=== PATIENT | male | born 1930 | race Caucasian/White ===

== ENCOUNTER → 2016-08-24 | Outpatient (CLI) | payer MEDICARE, BC ==
[~2016-08-24] MED LIST: AMLO2.5T PO; BRIM5DRO10 OD; BRINOS OP; BRINOS OS; BUDE10.2 IH; CLOP75 PO; COMBISP IH; DOCU-174 PO; DOCU100C19 PO; DUTA.5 PO; FURO10SO PO; FURO40 PO; GUAIF600 PO; LATA2.5D2 OU; MOM30 PO; MONT10TA21 PO; NIZO215C TP; OMEP20 PO; SIME80TA PO; TAMS0.4C32 PO; TIOT185 IH; TRI115C TP; VITAD1000 PO; [UNRECOGNIZED DRUG - CODE] PO
== END | disposition home or self-care (01) ==
LOC: RADMN 08:31
PROVIDERS: ATTEND Internal Medicine Critical Care Medicine
DX: J18.1 Lobar pneumonia, unspecified organism (principal); I70.0 Atherosclerosis of aorta; I25.10 Atherosclerotic heart disease of native coronary artery without angina pectoris; I51.7 Cardiomegaly; I77.819 Aortic ectasia, unspecified site; D71 Functional disorders of polymorphonuclear neutrophils; Z95.2 Presence of prosthetic heart valve
CPT/HCPCS: 71250

== ENCOUNTER → 2016-09-06 | Outpatient (CLI) | payer MEDICARE, BC ==
[~2016-09-06] VITALS: Ht 182.9 cm; Wt 77.9 kg
[2016-09-06 11:12] VITALS: BP 147/83
== END | disposition home or self-care (01) ==
LOC: SRCNTR 11:04
PROVIDERS: ATTEND Internal Medicine Critical Care Medicine
DX: J44.9 Chronic obstructive pulmonary disease, unspecified (principal); I25.10 Atherosclerotic heart disease of native coronary artery without angina pectoris; C34.90 Malignant neoplasm of unspecified part of unspecified bronchus or lung; N40.1 Benign prostatic hyperplasia with lower urinary tract symptoms; Z90.2 Acquired absence of lung [part of]
CPT/HCPCS: G0463

== ENCOUNTER → 2016-12-06 | Outpatient (CLI) | payer MEDICARE, BC ==
[~2016-12-06] VITALS: Ht 182.9 cm; Wt 76.5 kg
[~2016-12-06] MED LIST changes: -BRINOS OP; -DOCU100C19 PO; -FURO10SO PO
[2016-12-06 11:06] VITALS: BP 144/89
== END | disposition home or self-care (01) ==
LOC: SRCNTR 10:53
PROVIDERS: ATTEND Internal Medicine Critical Care Medicine
DX: I25.10 Atherosclerotic heart disease of native coronary artery without angina pectoris (principal); J44.1 Chronic obstructive pulmonary disease with (acute) exacerbation; C34.90 Malignant neoplasm of unspecified part of unspecified bronchus or lung; N40.1 Benign prostatic hyperplasia with lower urinary tract symptoms; Z90.2 Acquired absence of lung [part of]; Z95.2 Presence of prosthetic heart valve; Z95.1 Presence of aortocoronary bypass graft; Z95.5 Presence of coronary angioplasty implant and graft
CPT/HCPCS: G0463

== ENCOUNTER → 2017-03-07 | Outpatient (CLI) | payer MEDICARE, BC ==
[~2017-03-07] VITALS: Ht 182.9 cm; Wt 78.5 kg
[2017-03-07 11:29] VITALS: BP 148/69
== END | disposition home or self-care (01) ==
LOC: SRCNTR 11:02
PROVIDERS: ATTEND Internal Medicine Critical Care Medicine
DX: I25.10 Atherosclerotic heart disease of native coronary artery without angina pectoris (principal); J44.1 Chronic obstructive pulmonary disease with (acute) exacerbation; C34.90 Malignant neoplasm of unspecified part of unspecified bronchus or lung; N40.1 Benign prostatic hyperplasia with lower urinary tract symptoms; R33.8 Other retention of urine; E27.8 Other specified disorders of adrenal gland; Z90.2 Acquired absence of lung [part of]; Z95.1 Presence of aortocoronary bypass graft; Z95.5 Presence of coronary angioplasty implant and graft; Z95.3 Presence of xenogenic heart valve
CPT/HCPCS: G0463

== ENCOUNTER → 2017-07-17 | Outpatient (CLI) | payer MEDICARE, BC ==
[~2017-07-17] VITALS: Ht 182.9 cm; Wt 81.0 kg
[~2017-07-17] MED LIST changes: -DOCU-174 PO; +DOCU100C33 PO; +LEVO25TA4 PO
[2017-07-17 12:42] VITALS: BP 155/75
== END | disposition home or self-care (01) ==
LOC: SRCNTR 12:35
PROVIDERS: ATTEND Internal Medicine Critical Care Medicine
DX: J44.1 Chronic obstructive pulmonary disease with (acute) exacerbation (principal); C34.90 Malignant neoplasm of unspecified part of unspecified bronchus or lung; N40.1 Benign prostatic hyperplasia with lower urinary tract symptoms; I25.10 Atherosclerotic heart disease of native coronary artery without angina pectoris; Z90.2 Acquired absence of lung [part of]
CPT/HCPCS: G0463

== ENCOUNTER → 2017-10-02 | Outpatient (CLI) | payer MEDICARE, BC | END | disposition home or self-care (01) | LOC: RADPV 09:49 | PROVIDERS: ATTEND Internal Medicine | DX: J44.9 Chronic obstructive pulmonary disease, unspecified (principal); Z85.118 Personal history of other malignant neoplasm of bronchus and lung | CPT/HCPCS: 71046 ==

== ENCOUNTER → 2017-10-22 | Outpatient (CLI) | payer MEDICARE, BC | END | disposition home or self-care (01) | LOC: RADPV 07:37 | PROVIDERS: ATTEND Internal Medicine Critical Care Medicine | DX: J98.11 Atelectasis (principal); J44.9 Chronic obstructive pulmonary disease, unspecified | CPT/HCPCS: 71046 ==

== ENCOUNTER → 2018-01-24 | Outpatient (CLI) | payer MEDICARE, BC ==
[~2018-01-24] VITALS: Ht 182.9 cm; Wt 78.5 kg
[~2018-01-24] MED LIST changes: +FLUT1BLS IH; +UMEC62.5 IH
[2018-01-24 11:50] VITALS: BP 129/63
== END | disposition home or self-care (01) ==
LOC: SRCNTR 11:30
PROVIDERS: ATTEND Internal Medicine Critical Care Medicine
DX: J43.9 Emphysema, unspecified (principal); C34.90 Malignant neoplasm of unspecified part of unspecified bronchus or lung; N40.1 Benign prostatic hyperplasia with lower urinary tract symptoms; I25.10 Atherosclerotic heart disease of native coronary artery without angina pectoris; Z90.2 Acquired absence of lung [part of]
CPT/HCPCS: G0463

== ENCOUNTER → 2018-03-14 | Outpatient (CLI) | payer MEDICARE, BC ==
[~2018-03-14] MED LIST changes: -AMLO2.5T PO; +AMLO2.5T3 PO; -BUDE10.2 IH; -NIZO215C TP; -SIME80TA PO; -TIOT185 IH; -TRI115C TP
== END | disposition home or self-care (01) ==
LOC: RADMN 12:43
PROVIDERS: ATTEND Internal Medicine Critical Care Medicine
DX: I25.10 Atherosclerotic heart disease of native coronary artery without angina pectoris (principal); R91.8 Other nonspecific abnormal finding of lung field; I70.0 Atherosclerosis of aorta; E78.00 Pure hypercholesterolemia, unspecified; J44.9 Chronic obstructive pulmonary disease, unspecified; M19.90 Unspecified osteoarthritis, unspecified site; Z95.2 Presence of prosthetic heart valve; Z90.49 Acquired absence of other specified parts of digestive tract; Z90.2 Acquired absence of lung [part of]
CPT/HCPCS: 71250

== ENCOUNTER → 2018-05-03 | Outpatient (CLI) | payer MEDICARE, BC ==
[~2018-05-03] VITALS: Ht 182.9 cm; Wt 81.0 kg
[2018-05-03 13:33] VITALS: BP 139/66
== END | disposition home or self-care (01) ==
LOC: SRCNTR 13:13
PROVIDERS: ATTEND Internal Medicine Critical Care Medicine
DX: J44.1 Chronic obstructive pulmonary disease with (acute) exacerbation (principal); N40.1 Benign prostatic hyperplasia with lower urinary tract symptoms; I25.10 Atherosclerotic heart disease of native coronary artery without angina pectoris; Z85.118 Personal history of other malignant neoplasm of bronchus and lung; Z90.2 Acquired absence of lung [part of]; Z95.1 Presence of aortocoronary bypass graft
CPT/HCPCS: G0463

== ENCOUNTER → 2018-06-05 | Outpatient (CLI) | payer MEDICARE, BC | END | disposition home or self-care (01) | LOC: RADMN 09:10 | PROVIDERS: ATTEND Internal Medicine Critical Care Medicine | DX: J98.11 Atelectasis (principal); J44.1 Chronic obstructive pulmonary disease with (acute) exacerbation; R91.8 Other nonspecific abnormal finding of lung field; E27.8 Other specified disorders of adrenal gland; Z90.49 Acquired absence of other specified parts of digestive tract; Z95.2 Presence of prosthetic heart valve | CPT/HCPCS: 71250 ==

== ENCOUNTER → 2018-07-30 | Outpatient (CLI) | payer MEDICARE, BC ==
[~2018-07-30] VITALS: Ht 182.9 cm; Wt 80.0 kg
[~2018-07-30] MED LIST changes: -AMLO2.5T3 PO; +AMLO2.5T4 PO; -CLOP75 PO; +CLOP75TA17 PO
[2018-07-30 15:57] VITALS: BP 154/81
== END | disposition home or self-care (01) ==
LOC: SRCNTR 14:43
PROVIDERS: ATTEND Internal Medicine Critical Care Medicine
DX: J44.9 Chronic obstructive pulmonary disease, unspecified (principal); C34.90 Malignant neoplasm of unspecified part of unspecified bronchus or lung; I25.10 Atherosclerotic heart disease of native coronary artery without angina pectoris; N40.1 Benign prostatic hyperplasia with lower urinary tract symptoms
CPT/HCPCS: G0463

== ENCOUNTER 2018-11-11 18:40 | Inpatient (IN) | payer MEDICARE, BC ==
[~2018-11-11] VITALS: Ht 182.9 cm; Wt 80.0 kg
[~2018-11-11 18:40] MED LIST changes: -CLOP75TA17 PO; +CLOP75TA3 PO
[2018-11-11] MEDS ORDERED: IPRA4AER IH (19:02)
[2018-11-11] MEDS ORDERED: FLUT1BLS IH (19:02)
[2018-11-11] MEDS ORDERED: KDUR10 PO (19:02)
[2018-11-11] MEDS ORDERED: UMEC62.5 IH (19:02)
[2018-11-11] MEDS ORDERED: BRINOS OP (19:02)
[2018-11-11] MEDS ORDERED: ALBUTEROL SULFATE 2.5 MG/0.5 ML NEB SOLUTION NEB ONE (19:45)
[2018-11-11] MEDS ORDERED: IPRATROPIUM BROMIDE 0.5 MG/2.5 ML NEB SOLUTION NEB ONE (19:45)
[2018-11-11] MEDS ORDERED: CefTRIAXone 1 GM/DEXTROSE 50 ML IV ONE (19:45)
[2018-11-11] MEDS ORDERED: MethylPREDNISolone SOD SUCC 125 MG/2 ML VIAL IVP ONE (19:45)
[2018-11-11] MEDS ORDERED: OXYGEN THERAPY IH SCH ×2 (20:00→21:00)
[2018-11-11 20:28] LABS: BASOPHILS % (AUTO) 0.1 % (0.0-2.0); EOSINOPHILS % (AUTO) 0 % (1.0-6.0); HEMATOCRIT 41.5 % (41-53); HEMOGLOBIN 13.7 g/dL (13.5-17.5); LYMPHOCYTES # (AUTO) 0.3 K/uL (1.0-4.8); LYMPHOCYTES % (AUTO) 1.5 % (22.0-44.0); MEAN CORPUSCULAR HGB CONC 32.9 G/dL (31.0-37.0); MEAN CORPUSCULAR VOLUME 91 fL (80-100); MONOCYTES # (AUTO) 0.9 K/uL (0.1-1.0); MONOCYTES % (AUTO) 4.9 % (2.0-9.0); NEUTROPHILS # (AUTO) 17.1 K/uL (1.8-7.7); PLATELET COUNT (AUTO) 291 K/uL (150-450); RED BLOOD CELL COUNT(AUTO) 4.56 MIL/uL (4.50-5.90); RED CELL DISTRIBUTION WIDTH 13.8 % (11.5-14.5)
[2018-11-11] MEDS ORDERED: ACETAMINOPHEN 500 MG TABLET PO ONE (20:30)
[2018-11-11] MEDS ORDERED: SODIUM CHLORIDE 0.9% 1,500 ML IV ONE (20:30)
[2018-11-11 20:32] LABS: NEUTROPHILS % (AUTO) 93.5 % (40.0-70.0)
[2018-11-11 20:36] LABS: ANION GAP 6 mmol/L (8-16); CALCIUM, TOTAL 9.1 mg/dL (8.8-10.5); CARBON DIOXIDE 29 mmol/L (22-29); CHLORIDE 96 mmol/L (98-107); GLUCOSE,RANDOM 249 mg/dL (70-110); POTASSIUM 3.8 mmol/L (3.5-5.1); SODIUM SERUM 131 mmol/L (136-145); UREA NITROGEN, BLOOD 14 mg/dL (7-18)
[2018-11-11 20:43] LABS: ALANINE AMINOTRANSFERASE 16 U/L (12-78); ALBUMIN 3.5 g/dL (3.4-5.0); ALKALINE PHOSPHATASE 95 U/L (46-116); ASPARTATE AMINOTRANSFERASE 18 U/L (15-37); GLOMERULAR FILTR. RATE CALC > 60 mL/min (>60); TOTAL PROTEIN, SERUM 7.5 g/dL (6.4-8.2)
[2018-11-11 20:45] LABS: LACTIC ACID 1.6 mmol/L (0.4-2.0)
[2018-11-11 20:50] LABS: B-TYPE NATRIURETIC PEPTIDE 125 pg/mL (0-100)
[2018-11-11 20:59] LABS: INFLUENZA TYPE A NEGATIVE FOR TYPE A (NEGATIVE); INFLUENZA TYPE B NEGATIVE FOR TYPE B (NEGATIVE)
[2018-11-11] MEDS ORDERED: 0.9% SODIUM CHLORIDE 10 ML SYRINGE IVP PRN (21:00)
[2018-11-11] MEDS ORDERED: CLOPIDOGREL BISULFATE 75 MG TABLET PO ONE (21:00)
[2018-11-11] MEDS ORDERED: ACETAMINOPHEN 325 MG TABLET PO PRN ×2 (21:00→21:15)
[2018-11-11] MEDS ORDERED: GuaiFENesin/D-METHORPHAN/PHENYLEPH 5 ML LIQUID ORAL.SYG PO PRN (21:15)
[2018-11-11] MEDS ORDERED: BISACODYL 10 MG RECTAL RECTAL SUPPOSITORY PR PRN (21:15)
[2018-11-11] MEDS ORDERED: ALBUTEROL SULFATE 2.5 MG/0.5 ML NEB SOLUTION NEB PRN (21:15)
[2018-11-11] MEDS ORDERED: OxyCODONE HCL/ACETAMINOPHEN 5-325 MG TABLET PO PRN (21:15)
[2018-11-11] MEDS ORDERED: BENZOCAINE/MENTHOL LOZENGE MM PRN (21:15)
[2018-11-11] MEDS ORDERED: MORPHINE SULFATE 2 MG/ML SYRINGE IVP PRN (21:15)
[2018-11-11] MEDS ORDERED: IPRATROPIUM BROMIDE 0.5 MG/2.5 ML NEB SOLUTION NEB PRN (21:15)
[2018-11-11] MEDS ORDERED: MAGNESIUM HYDROXIDE SUSPENSION 30 ML UDCUP PO PRN (21:15)
[2018-11-11] MEDS ORDERED: ZOLPIDEM TARTRATE 5 MG TABLET PO PRN (21:15)
[2018-11-11] MEDS ORDERED: IPRATROPIUM BROMIDE 0.5 MG/2.5 ML NEB SOLUTION NEB SCH (23:00)
[2018-11-11] MEDS ORDERED: ALBUTEROL SULFATE 2.5 MG/0.5 ML NEB SOLUTION NEB SCH (23:00)
[2018-11-11 23:03] VITALS: BP 118/65
[2018-11-12] MEDS ORDERED: HEPARIN SODIUM 25000 UNITS/D5W 250 ML IV PRN (04:01)
[2018-11-12] MEDS ORDERED: HEPARIN SODIUM,PORCINE 5,000 UNITS/ML VIAL IVP PRN ×2 (04:15)
[2018-11-12] MEDS ORDERED: HEPARIN SODIUM,PORCINE 5,000 UNITS/ML VIAL IVP ONE (04:15)
[2018-11-12 04:37] LABS: BASOPHILS % (AUTO) 0.1 % (0.0-2.0); EOSINOPHILS % (AUTO) 0 % (1.0-6.0); HEMATOCRIT 39.9 % (41-53); LYMPHOCYTES # (AUTO) 0.5 K/uL (1.0-4.8); MEAN CORPUSCULAR HGB CONC 32.5 G/dL (31.0-37.0); MEAN CORPUSCULAR VOLUME 92 fL (80-100); MONOCYTES # (AUTO) 0.5 K/uL (0.1-1.0); MONOCYTES % (AUTO) 2.2 % (2.0-9.0); NEUTROPHILS # (AUTO) 22.2 K/uL (1.8-7.7); PLATELET COUNT (AUTO) 285 K/uL (150-450); RED BLOOD CELL COUNT(AUTO) 4.32 MIL/uL (4.50-5.90)
[2018-11-12 04:41] VITALS: BP 129/72
[2018-11-12 04:41] LABS: NEUTROPHILS % (AUTO) 95.7 % (40.0-70.0)
[2018-11-12 04:44] LABS: INR 1.1 (0.9-1.1)
[2018-11-12 04:49] LABS: ALANINE AMINOTRANSFERASE 13 U/L (12-78); ALBUMIN 2.9 g/dL (3.4-5.0); ALKALINE PHOSPHATASE 80 U/L (46-116); ANION GAP 8 mmol/L (8-16); ASPARTATE AMINOTRANSFERASE 22 U/L (15-37); BILIRUBIN,TOTAL 0.7 mg/dL (0.1-1.0); CALCIUM, TOTAL 8.3 mg/dL (8.8-10.5); CARBON DIOXIDE 30 mmol/L (22-29); CHLORIDE 100 mmol/L (98-107); CREATININE 0.93 mg/dL (0.60-1.30); GLOMERULAR FILTR. RATE CALC > 60 mL/min (>60); GLUCOSE,RANDOM 206 mg/dL (70-110); POTASSIUM 4.7 mmol/L (3.5-5.1); SODIUM SERUM 138 mmol/L (136-145); TOTAL PROTEIN, SERUM 6.5 g/dL (6.4-8.2); UREA NITROGEN, BLOOD 13 mg/dL (7-18)
[2018-11-12 04:50] LABS: HEMOGLOBIN A1C 6.5 % (4.5-6.2)
[2018-11-12] MEDS: LEVOTHYROXINE SODIUM 25 MCG TABLET PO SCH (06:12)
[2018-11-12 07:29] VITALS: BP 125/68
[2018-11-12] MEDS ORDERED: ASPIRIN 81 MG EC TABLET PO SCH (08:00)
[2018-11-12] MEDS: ALBUTEROL SULFATE 2.5 MG/0.5 ML NEB SOLUTION NEB SCH ×4 (08:28→20:04)
[2018-11-12] MEDS: IPRATROPIUM BROMIDE 0.5 MG/2.5 ML NEB SOLUTION NEB SCH ×4 (08:28→20:04)
[2018-11-12] MEDS: NITROGLYCERIN 2% (1 GM=INCH) PACKET TP SCH ×2 (08:50→17:15)
[2018-11-12] MEDS: DUTASTERIDE 0.5 MG CAPSULE PO SCH (08:50)
[2018-11-12] MEDS: TICAGRELOR 60 MG TABLET PO SCH ×2 (08:51→20:22)
[2018-11-12] MEDS: TAMSULOSIN HCL 0.4 MG CAPSULE PO SCH (08:51)
[2018-11-12] MEDS: ATORVASTATIN CALCIUM 10 MG TABLET PO SCH (08:51)
[2018-11-12] MEDS: MONTELUKAST SODIUM 10 MG TABLET PO SCH (08:51)
[2018-11-12] MEDS: BRINZOLAMIDE 1% 10 ML OPHTHALMIC SUSPENSION OU SCH ×2 (08:51→20:19)
[2018-11-12] MEDS: METOPROLOL TARTRATE 25 MG TABLET PO SCH ×3 (08:51→20:22)
[2018-11-12] MEDS: BRIMONIDINE TARTRATE 0.15% 5 ML OPHTHALMIC SOLUTION OD SCH ×3 (08:52→20:18)
[2018-11-12] MEDS: MethylPREDNISolone SOD SUCC 125 MG/2 ML VIAL IVP SCH ×3 (08:52→20:18)
[2018-11-12] MEDS ORDERED: AmLODIPine BESYLATE 10 MG TABLET PO SCH (09:00)
[2018-11-12] MEDS ORDERED: CLOPIDOGREL BISULFATE 75 MG TABLET PO SCH (09:00)
[2018-11-12] MEDS ORDERED: HEPARIN SODIUM,PORCINE 5,000 UNITS/ML VIAL SQ SCH (09:00)
[2018-11-12] MEDS ORDERED: FUROSEMIDE 40 MG TABLET PO SCH (09:00)
[2018-11-12 11:16] VITALS: BP 113/61
[2018-11-12] MEDS: AmLODIPine BESYLATE 10 MG TABLET PO SCH (12:06)
[2018-11-12 17:04] VITALS: BP 123/56
[2018-11-12] MEDS: FUROSEMIDE 40 MG TABLET PO SCH (17:16)
[2018-11-12] MEDS: CHOLECALCIFEROL (VIT D3) 1,000 UNITS TABLET PO SCH (20:16)
[2018-11-12] MEDS: CefTRIAXone 1 GM/DEXTROSE 50 ML IV SCH (20:18)
[2018-11-12] MEDS: LATANOPROST 0.005% 2.5 ML OPHTHALMIC SOLUTION OU SCH (20:20)
[2018-11-12 20:29] VITALS: BP 99/56
[2018-11-12] MEDS ORDERED: SODIUM CHLORIDE 0.9% 500 ML IV ONE (20:36)
[2018-11-12] MEDS: DOXYCYCLINE HYCLATE 100 MG in DEXTROSE 5%-WATER 100 ML IV SCH (21:39)
[2018-11-13] MEDS: NITROGLYCERIN 2% (1 GM=INCH) PACKET TP SCH ×3 (00:15→16:00)
[2018-11-13 00:30] VITALS: BP 125/64
[2018-11-13 05:00] VITALS: BP 137/86
[2018-11-13] MEDS: LEVOTHYROXINE SODIUM 25 MCG TABLET PO SCH (05:58)
[2018-11-13 06:52] LABS: ALANINE AMINOTRANSFERASE 16 U/L (12-78); ALBUMIN 3.3 g/dL (3.4-5.0); ALKALINE PHOSPHATASE 84 U/L (46-116); ANION GAP 8 mmol/L (8-16); ASPARTATE AMINOTRANSFERASE 24 U/L (15-37); BILIRUBIN,TOTAL 0.6 mg/dL (0.1-1.0); CALCIUM, TOTAL 8.9 mg/dL (8.8-10.5); CARBON DIOXIDE 26 mmol/L (22-29); CHLORIDE 101 mmol/L (98-107); CREATININE 0.97 mg/dL (0.60-1.30); GLUCOSE,RANDOM 175 mg/dL (70-110); SODIUM SERUM 135 mmol/L (136-145); TOTAL PROTEIN, SERUM 6.6 g/dL (6.4-8.2); UREA NITROGEN, BLOOD 22 mg/dL (7-18)
[2018-11-13 06:57] LABS: GLOMERULAR FILTR. RATE CALC > 60 mL/min (>60)
[2018-11-13] MEDS: IPRATROPIUM BROMIDE 0.5 MG/2.5 ML NEB SOLUTION NEB SCH ×4 (08:13→20:02)
[2018-11-13] MEDS: BUDESONIDE 0.5 MG/2 ML NEB SOLUTION NEB SCH ×3 (08:13→20:02)
[2018-11-13] MEDS: ALBUTEROL SULFATE 2.5 MG/0.5 ML NEB SOLUTION NEB SCH ×4 (08:13→20:02)
[2018-11-13 08:21] VITALS: BP 146/71
[2018-11-13] MEDS: DOXYCYCLINE HYCLATE 100 MG in DEXTROSE 5%-WATER 100 ML IV SCH ×2 (08:51→21:09)
[2018-11-13] MEDS: MethylPREDNISolone SOD SUCC 125 MG/2 ML VIAL IVP SCH ×2 (08:52→15:59)
[2018-11-13] MEDS: BRIMONIDINE TARTRATE 0.15% 5 ML OPHTHALMIC SOLUTION OD SCH ×3 (08:52→20:37)
[2018-11-13] MEDS: MONTELUKAST SODIUM 10 MG TABLET PO SCH (08:58)
[2018-11-13] MEDS: ATORVASTATIN CALCIUM 10 MG TABLET PO SCH (08:59)
[2018-11-13] MEDS: AmLODIPine BESYLATE 10 MG TABLET PO SCH (08:59)
[2018-11-13] MEDS: METOPROLOL TARTRATE 25 MG TABLET PO SCH ×3 (09:00→20:37)
[2018-11-13] MEDS: TAMSULOSIN HCL 0.4 MG CAPSULE PO SCH (09:00)
[2018-11-13] MEDS: FUROSEMIDE 40 MG TABLET PO SCH (09:00)
[2018-11-13] MEDS: DUTASTERIDE 0.5 MG CAPSULE PO SCH (09:01)
[2018-11-13] MEDS: TICAGRELOR 60 MG TABLET PO SCH ×2 (09:01→20:37)
[2018-11-13] MEDS: BRINZOLAMIDE 1% 10 ML OPHTHALMIC SUSPENSION OU SCH ×2 (09:02→20:37)
[2018-11-13 11:31] VITALS: BP 154/82
[2018-11-13 15:32] VITALS: BP 145/74
[2018-11-13] MEDS: CHOLECALCIFEROL (VIT D3) 1,000 UNITS TABLET PO SCH (18:05)
[2018-11-13 19:32] VITALS: BP 156/112
[2018-11-13] MEDS: CefTRIAXone 1 GM/DEXTROSE 50 ML IV SCH (20:31)
[2018-11-13] MEDS: LATANOPROST 0.005% 2.5 ML OPHTHALMIC SOLUTION OU SCH (20:37)
[2018-11-13] MEDS ORDERED: MethylPREDNISolone SOD SUCC 40 MG/ML VIAL IVP SCH (21:00)
[2018-11-14] VITALS (8 sets, daily range): BP systolic 122–164; BP diastolic 62–95
[2018-11-14] MEDS: NITROGLYCERIN 2% (1 GM=INCH) PACKET TP SCH ×4 (00:05→23:30)
[2018-11-14] MEDS: LEVOTHYROXINE SODIUM 25 MCG TABLET PO SCH (05:48)
[2018-11-14 06:22] LABS: BASOPHILS % (AUTO) 0.1 % (0.0-2.0); EOSINOPHILS % (AUTO) 0 % (1.0-6.0); HEMATOCRIT 39.2 % (41-53); HEMOGLOBIN 12.9 g/dL (13.5-17.5); LYMPHOCYTES # (AUTO) 0.3 K/uL (1.0-4.8); MEAN CORPUSCULAR HGB CONC 32.9 G/dL (31.0-37.0); MEAN CORPUSCULAR VOLUME 91 fL (80-100); MONOCYTES # (AUTO) 0.5 K/uL (0.1-1.0); NEUTROPHILS # (AUTO) 16.4 K/uL (1.8-7.7); PLATELET COUNT (AUTO) 308 K/uL (150-450); RED BLOOD CELL COUNT(AUTO) 4.29 MIL/uL (4.50-5.90); RED CELL DISTRIBUTION WIDTH 13.7 % (11.5-14.5)
[2018-11-14 06:28] LABS: NEUTROPHILS % (AUTO) 94.9 % (40.0-70.0)
[2018-11-14 06:32] LABS: ANION GAP 6 mmol/L (8-16); CARBON DIOXIDE 28 mmol/L (22-29); CHLORIDE 100 mmol/L (98-107); CREATININE 0.77 mg/dL (0.60-1.30); GLUCOSE,RANDOM 156 mg/dL (70-110); POTASSIUM 3.7 mmol/L (3.5-5.1); SODIUM SERUM 134 mmol/L (136-145); UREA NITROGEN, BLOOD 24 mg/dL (7-18)
[2018-11-14 06:33] LABS: GLOMERULAR FILTR. RATE CALC > 60 mL/min (>60)
[2018-11-14] MEDS: BUDESONIDE 0.5 MG/2 ML NEB SOLUTION NEB SCH ×2 (08:08→20:14)
[2018-11-14] MEDS: ALBUTEROL SULFATE 2.5 MG/0.5 ML NEB SOLUTION NEB SCH ×4 (08:08→20:14)
[2018-11-14] MEDS: IPRATROPIUM BROMIDE 0.5 MG/2.5 ML NEB SOLUTION NEB SCH ×4 (08:08→20:13)
[2018-11-14] MEDS: BRINZOLAMIDE 1% 10 ML OPHTHALMIC SUSPENSION OU SCH (09:56)
[2018-11-14] MEDS: BRIMONIDINE TARTRATE 0.15% 5 ML OPHTHALMIC SOLUTION OD SCH (09:56)
[2018-11-14] MEDS: TICAGRELOR 60 MG TABLET PO SCH ×2 (09:56→21:07)
[2018-11-14] MEDS: AmLODIPine BESYLATE 10 MG TABLET PO SCH (09:57)
[2018-11-14] MEDS: TAMSULOSIN HCL 0.4 MG CAPSULE PO SCH (09:57)
[2018-11-14] MEDS: MONTELUKAST SODIUM 10 MG TABLET PO SCH (09:57)
[2018-11-14] MEDS: DUTASTERIDE 0.5 MG CAPSULE PO SCH (09:57)
[2018-11-14] MEDS: FUROSEMIDE 40 MG TABLET PO SCH (09:58)
[2018-11-14] MEDS: METOPROLOL TARTRATE 25 MG TABLET PO SCH ×3 (09:58→21:07)
[2018-11-14] MEDS: PredniSONE 20 MG TABLET PO SCH (09:58)
[2018-11-14] MEDS: DOXYCYCLINE HYCLATE 100 MG in DEXTROSE 5%-WATER 100 ML IV SCH ×2 (09:59→21:41)
[2018-11-14] MEDS: ATORVASTATIN CALCIUM 10 MG TABLET PO SCH (10:01)
[2018-11-14] MEDS: BRIMONIDINE TARTRATE 0.15% 5 ML OPHTHALMIC SOLUTION OU SCH ×2 (15:57→21:00)
[2018-11-14] MEDS: CHOLECALCIFEROL (VIT D3) 1,000 UNITS TABLET PO SCH (18:37)
[2018-11-14] MEDS: CefTRIAXone 1 GM/DEXTROSE 50 ML IV SCH (20:54)
[2018-11-14] MEDS: LATANOPROST 0.005% 2.5 ML OPHTHALMIC SOLUTION OU SCH (21:07)
[2018-11-14] MEDS: BRINZOLAMIDE 1% 10 ML OPHTHALMIC SUSPENSION OS SCH (21:08)
[2018-11-15 04:29] VITALS: BP 140/87
[2018-11-15 06:28] LABS: BASOPHILS % (AUTO) 0.2 % (0.0-2.0); EOSINOPHILS % (AUTO) 0 % (1.0-6.0); HEMATOCRIT 40.1 % (41-53); HEMOGLOBIN 13.2 g/dL (13.5-17.5); LYMPHOCYTES # (AUTO) 0.8 K/uL (1.0-4.8); LYMPHOCYTES % (AUTO) 4.8 % (22.0-44.0); MEAN CORPUSCULAR VOLUME 91 fL (80-100); MONOCYTES # (AUTO) 1.5 K/uL (0.1-1.0); MONOCYTES % (AUTO) 9.4 % (2.0-9.0); NEUTROPHILS # (AUTO) 13.7 K/uL (1.8-7.7); PLATELET COUNT (AUTO) 325 K/uL (150-450); RED BLOOD CELL COUNT(AUTO) 4.41 MIL/uL (4.50-5.90); RED CELL DISTRIBUTION WIDTH 14.2 % (11.5-14.5)
[2018-11-15 06:29] LABS: NEUTROPHILS % (AUTO) 85.6 % (40.0-70.0)
[2018-11-15 06:43] LABS: ANION GAP 7 mmol/L (8-16); CALCIUM, TOTAL 8.9 mg/dL (8.8-10.5); CARBON DIOXIDE 30 mmol/L (22-29); CHLORIDE 101 mmol/L (98-107); CREATININE 0.79 mg/dL (0.60-1.30); GLUCOSE,RANDOM 117 mg/dL (70-110); POTASSIUM 3.4 mmol/L (3.5-5.1); SODIUM SERUM 138 mmol/L (136-145); UREA NITROGEN, BLOOD 23 mg/dL (7-18)
[2018-11-15 06:47] LABS: GLOMERULAR FILTR. RATE CALC > 60 mL/min (>60)
[2018-11-15] MEDS: LEVOTHYROXINE SODIUM 25 MCG TABLET PO SCH (06:48)
[2018-11-15 08:10] VITALS: BP 133/85
[2018-11-15] MEDS: DUTASTERIDE 0.5 MG CAPSULE PO SCH (08:19)
[2018-11-15] MEDS: MONTELUKAST SODIUM 10 MG TABLET PO SCH (08:20)
[2018-11-15] MEDS: METOPROLOL TARTRATE 25 MG TABLET PO SCH (08:20)
[2018-11-15] MEDS: ATORVASTATIN CALCIUM 10 MG TABLET PO SCH (08:21)
[2018-11-15] MEDS: TAMSULOSIN HCL 0.4 MG CAPSULE PO SCH (08:22)
[2018-11-15] MEDS: PredniSONE 20 MG TABLET PO SCH (08:22)
[2018-11-15] MEDS: AmLODIPine BESYLATE 10 MG TABLET PO SCH (08:22)
[2018-11-15] MEDS: FUROSEMIDE 40 MG TABLET PO SCH (08:22)
[2018-11-15] MEDS: TICAGRELOR 60 MG TABLET PO SCH (08:23)
[2018-11-15] MEDS: NITROGLYCERIN 2% (1 GM=INCH) PACKET TP SCH (08:23)
[2018-11-15] MEDS: BRIMONIDINE TARTRATE 0.15% 5 ML OPHTHALMIC SOLUTION OU SCH (08:23)
[2018-11-15] MEDS: BRINZOLAMIDE 1% 10 ML OPHTHALMIC SUSPENSION OS SCH (08:23)
[2018-11-15] MEDS: DOXYCYCLINE HYCLATE 100 MG in DEXTROSE 5%-WATER 100 ML IV SCH (08:24)
[2018-11-15] MEDS: IPRATROPIUM BROMIDE 0.5 MG/2.5 ML NEB SOLUTION NEB SCH ×2 (08:25→13:00)
[2018-11-15] MEDS: BUDESONIDE 0.5 MG/2 ML NEB SOLUTION NEB SCH (08:25)
[2018-11-15] MEDS: ALBUTEROL SULFATE 2.5 MG/0.5 ML NEB SOLUTION NEB SCH ×2 (08:25→13:00)
[2018-11-15 10:50] LABS: LEGIONELLA PNEUMO AG URINE Negative (Negative)
[2018-11-15 11:31] LABS: ORGANISM ID Not indicated.; S PNEUMO SOURCE Urine; STREP PNEUMONIAE AG URINE Negative (Negative); STREP.PNEUMO BODY FLUID CULT. Not Indicated
[2018-11-15 11:43] VITALS: BP 138/82
[2018-11-15] MEDS ORDERED: POTASSIUM CHLORIDE 20 MEQ ER TABLET PO ONE (12:00)
[2018-11-15] MEDS ORDERED: PRED20 PO (12:27)
[2018-11-15] MEDS ORDERED: LEVO250 PO (12:28)
[2018-11-15] MEDS ORDERED: DOXY100C PO (12:29)
[2018-11-15] MEDS ORDERED: PRED5 PO (13:19)
== END 2018-11-15 13:40 | disposition home or self-care (01) | DRG 871 ==
LOC: EMS 18:40 → 5S 21:57
PROVIDERS: ADMIT Internal Medicine; ATTEND Internal Medicine
DX: A41.9 Sepsis, unspecified organism (principal); J18.9 Pneumonia, unspecified organism; I21.4 Non-ST elevation (NSTEMI) myocardial infarction; J18.0 Bronchopneumonia, unspecified organism; I42.9 Cardiomyopathy, unspecified; I25.10 Atherosclerotic heart disease of native coronary artery without angina pectoris; I10 Essential (primary) hypertension; N40.0 Benign prostatic hyperplasia without lower urinary tract symptoms; H40.9 Unspecified glaucoma; J30.9 Allergic rhinitis, unspecified; E55.9 Vitamin D deficiency, unspecified; K59.00 Constipation, unspecified; F03.90 Unspecified dementia, unspecified severity, without behavioral disturbance, psychotic disturbance, mood disturbance, and anxiety; M19.90 Unspecified osteoarthritis, unspecified site; J43.9 Emphysema, unspecified; Z85.118 Personal history of other malignant neoplasm of bronchus and lung; Z95.1 Presence of aortocoronary bypass graft; Z85.828 Personal history of other malignant neoplasm of skin; Z87.891 Personal history of nicotine dependence; Z88.6 Allergy status to analgesic agent; Z90.2 Acquired absence of lung [part of]; Z90.49 Acquired absence of other specified parts of digestive tract; Z95.3 Presence of xenogenic heart valve; Z95.5 Presence of coronary angioplasty implant and graft; Z88.1 Allergy status to other antibiotic agents; Z88.8 Allergy status to other drugs, medicaments and biological substances; Z79.899 Other long term (current) drug therapy
CPT/HCPCS: 71250; 83036; 83605; 83735; 84100; 87040; 87081; 87449; 87804; 87899; 93005; 93306; 94060; 94640; 96365; 96375; 99291; G0378; J0696; J1644; J2920; J2930; J3490; J7030; J7040; J7060

== ENCOUNTER 2018-12-31 16:50 | Emergency (ER) | payer MEDICARE, BC ==
[~2018-12-31] VITALS: Ht 182.9 cm; Wt 81.8 kg
[~2018-12-31 16:50] MED LIST changes: +BRINOS OP; -BRINOS OS; -COMBISP IH; +DOXY100C PO; -GUAIF600 PO; +IPRA4AER IH; +KDUR10 PO; +LEVO250 PO; -MOM30 PO; +PRED20 PO; +PRED5 PO; -[UNRECOGNIZED DRUG - CODE] PO
[2018-12-31 21:56] VITALS: BP 148/79
== END 2018-12-31 21:59 | disposition home or self-care (01) ==
LOC: EMS 16:53
DX: K59.00 Constipation, unspecified (principal); R33.9 Retention of urine, unspecified; I10 Essential (primary) hypertension; J44.9 Chronic obstructive pulmonary disease, unspecified; Z88.6 Allergy status to analgesic agent; Z79.899 Other long term (current) drug therapy; Z88.8 Allergy status to other drugs, medicaments and biological substances
CPT/HCPCS: 51702; 74018

== ENCOUNTER → 2019-02-04 | Outpatient (CLI) | payer MEDICARE, BC ==
[~2019-02-04] MED LIST changes: -DOXY100C PO; -LEVO250 PO; -PRED20 PO; -PRED5 PO
== END | disposition home or self-care (01) ==
LOC: RADPV 10:32
PROVIDERS: ATTEND Internal Medicine
DX: I77.1 Stricture of artery (principal); R91.1 Solitary pulmonary nodule; I82.509 Chronic embolism and thrombosis of unspecified deep veins of unspecified lower extremity; J18.9 Pneumonia, unspecified organism
CPT/HCPCS: 71250; 93970

== ENCOUNTER → 2019-05-01 | Outpatient (CLI) | payer MEDICARE, BC ==
[~2019-05-01] MED LIST changes: +CHOL100018 PO; +NYSTATIN 15 GM CREAM [WOUND CENTER ONLY] TP ONE; +TAMS-13 PO; -TAMS0.4C32 PO; -VITAD1000 PO
== END | disposition home or self-care (01) ==
LOC: HBOWC 07:38
PROVIDERS: ATTEND Nurse Practitioner Adult Health
DX: L97.821 Non-pressure chronic ulcer of other part of left lower leg limited to breakdown of skin (principal); L03.115 Cellulitis of right lower limb; L03.116 Cellulitis of left lower limb; I87.2 Venous insufficiency (chronic) (peripheral); I73.9 Peripheral vascular disease, unspecified; J44.9 Chronic obstructive pulmonary disease, unspecified; E03.9 Hypothyroidism, unspecified; K21.9 Gastro-esophageal reflux disease without esophagitis; I10 Essential (primary) hypertension; Z85.118 Personal history of other malignant neoplasm of bronchus and lung; Z87.891 Personal history of nicotine dependence

== ENCOUNTER 2019-05-14 03:41 | Emergency (ER) | payer MEDICARE, BC ==
[~2019-05-14] VITALS: Ht 185.4 cm; Wt 79.5 kg
[~2019-05-14 03:41] MED LIST changes: -NYSTATIN 15 GM CREAM [WOUND CENTER ONLY] TP ONE
[2019-05-14] MEDS ORDERED: POLYETHYLENE GLYCOL 3350 17 GM PACKET PO ONE (04:30)
[2019-05-14] MEDS ORDERED: MAGNESIUM CITRATE 300 ML ORAL SOLUTION PO ONE (04:30)
[2019-05-14 04:55] VITALS: BP 143/71
[2019-05-14 05:01] LABS: BASOPHILS % (AUTO) 0.7 % (0.0-2.0); EOSINOPHILS % (AUTO) 5.3 % (1.0-6.0); HEMATOCRIT 37.1 % (41-53); HEMOGLOBIN 12.4 g/dL (13.5-17.5); LYMPHOCYTES # (AUTO) 0.9 K/uL (1.0-4.8); LYMPHOCYTES % (AUTO) 12.6 % (22.0-44.0); MEAN CORPUSCULAR HEMOGLOBIN 30.5 pg (26.0-34.0); MEAN CORPUSCULAR HGB CONC 33.5 G/dL (31.0-37.0); MEAN CORPUSCULAR VOLUME 91 fL (80-100); MONOCYTES % (AUTO) 13.8 % (2.0-9.0); NEUTROPHILS % (AUTO) 67.6 % (40.0-70.0); PLATELET COUNT (AUTO) 277 K/uL (150-450); RED BLOOD CELL COUNT(AUTO) 4.07 MIL/uL (4.50-5.90); RED CELL DISTRIBUTION WIDTH 13.9 % (11.5-14.5)
[2019-05-14 05:18] LABS: ANION GAP 5 mmol/L (8-16); CALCIUM, TOTAL 8.8 mg/dL (8.8-10.5); CARBON DIOXIDE 31 mmol/L (22-29); CHLORIDE 96 mmol/L (98-107); CREATININE 0.74 mg/dL (0.60-1.30); GLUCOSE,RANDOM 132 mg/dL (70-110); POTASSIUM 4.3 mmol/L (3.5-5.1); SODIUM SERUM 132 mmol/L (136-145); UREA NITROGEN, BLOOD 12 mg/dL (7-18)
[2019-05-14 05:19] LABS: ALANINE AMINOTRANSFERASE 13 U/L (12-78); ALKALINE PHOSPHATASE 86 U/L (46-116); ASPARTATE AMINOTRANSFERASE 17 U/L (15-37); BILIRUBIN,TOTAL 0.8 mg/dL (0.1-1.0); TOTAL PROTEIN, SERUM 6.7 g/dL (6.4-8.2)
[2019-05-14 05:25] LABS: GLOMERULAR FILTR. RATE CALC > 60 mL/min (>60)
[2019-05-14 06:01] LABS: APPEARANCE,URINE CLEAR (CLEAR); BILIRUBIN,URINE NEGATIVE (NEGATIVE); GLUCOSE, URINE (UA) NEGATIVE (NEGATIVE); KETONES,URINE NEGATIVE (NEGATIVE); LEUKOCYTE ESTERASE ,URINE NEGATIVE (NEGATIVE); NITRATE,URINE NEGATIVE (NEGATIVE); OCCULT BLOOD,URINE NEGATIVE (NEGATIVE); PROTEIN,URINE NEGATIVE (NEGATIVE)
== END 2019-05-14 06:44 | disposition home or self-care (01) ==
LOC: EMS 03:41
DX: K59.00 Constipation, unspecified (principal); N39.0 Urinary tract infection, site not specified; I11.9 Hypertensive heart disease without heart failure; J44.9 Chronic obstructive pulmonary disease, unspecified; Z95.1 Presence of aortocoronary bypass graft; Z98.890 Other specified postprocedural states; Z79.899 Other long term (current) drug therapy; Z85.89 Personal history of malignant neoplasm of other organs and systems; Z88.5 Allergy status to narcotic agent; Z88.6 Allergy status to analgesic agent; Z88.1 Allergy status to other antibiotic agents; Z88.8 Allergy status to other drugs, medicaments and biological substances

== ENCOUNTER → 2019-05-15 | Outpatient (CLI) | payer MEDICARE, BC ==
[~2019-05-15] MED LIST changes: +NYSTATIN 15 GM CREAM [WOUND CENTER ONLY] TP ONE
== END | disposition home or self-care (01) ==
LOC: HBOWC 08:26
PROVIDERS: ATTEND Nurse Practitioner Adult Health
DX: L97.821 Non-pressure chronic ulcer of other part of left lower leg limited to breakdown of skin (principal); L03.115 Cellulitis of right lower limb; L03.116 Cellulitis of left lower limb; I87.2 Venous insufficiency (chronic) (peripheral); I73.9 Peripheral vascular disease, unspecified; J44.9 Chronic obstructive pulmonary disease, unspecified; E03.9 Hypothyroidism, unspecified; K21.9 Gastro-esophageal reflux disease without esophagitis; I10 Essential (primary) hypertension; Z85.118 Personal history of other malignant neoplasm of bronchus and lung; Z87.891 Personal history of nicotine dependence

== ENCOUNTER → 2019-06-05 | Outpatient (CLI) | payer MEDICARE, BC ==
[~2019-06-05] MED LIST changes: -NYSTATIN 15 GM CREAM [WOUND CENTER ONLY] TP ONE
== END | disposition home or self-care (01) ==
LOC: HBOWC 08:32
PROVIDERS: ATTEND Nurse Practitioner Adult Health
DX: L97.828 Non-pressure chronic ulcer of other part of left lower leg with other specified severity (principal); I87.2 Venous insufficiency (chronic) (peripheral); I73.9 Peripheral vascular disease, unspecified; J44.9 Chronic obstructive pulmonary disease, unspecified; E03.9 Hypothyroidism, unspecified; K21.9 Gastro-esophageal reflux disease without esophagitis; I11.9 Hypertensive heart disease without heart failure; H91.90 Unspecified hearing loss, unspecified ear; R32 Unspecified urinary incontinence; Z85.118 Personal history of other malignant neoplasm of bronchus and lung; Z87.891 Personal history of nicotine dependence; Z95.1 Presence of aortocoronary bypass graft; Z85.89 Personal history of malignant neoplasm of other organs and systems; Z88.6 Allergy status to analgesic agent; Z88.1 Allergy status to other antibiotic agents; Z88.5 Allergy status to narcotic agent; Z88.8 Allergy status to other drugs, medicaments and biological substances; Z79.899 Other long term (current) drug therapy; Z79.82 Long term (current) use of aspirin

== ENCOUNTER → 2019-07-08 | Outpatient (CLI) | payer MEDICARE, BC ==
[~2019-07-08] VITALS: Ht 185.4 cm; Wt 79.7 kg
[2019-07-08 09:42] VITALS: BP 98/68
== END | disposition home or self-care (01) ==
LOC: SRCNTR 09:39
PROVIDERS: ATTEND Internal Medicine Critical Care Medicine
DX: J44.1 Chronic obstructive pulmonary disease with (acute) exacerbation (principal); C34.90 Malignant neoplasm of unspecified part of unspecified bronchus or lung; Z90.2 Acquired absence of lung [part of]; N40.1 Benign prostatic hyperplasia with lower urinary tract symptoms; I25.10 Atherosclerotic heart disease of native coronary artery without angina pectoris; Z79.899 Other long term (current) drug therapy; Z88.6 Allergy status to analgesic agent; Z88.1 Allergy status to other antibiotic agents; Z88.8 Allergy status to other drugs, medicaments and biological substances; Z95.0 Presence of cardiac pacemaker; Z98.890 Other specified postprocedural states; Z95.2 Presence of prosthetic heart valve; Z95.1 Presence of aortocoronary bypass graft
CPT/HCPCS: G0463

== ENCOUNTER → 2020-04-29 | Outpatient (CLI) | payer MEDICARE, BC ==
[~2020-04-29] MED LIST changes: -AMLO2.5T4 PO; +AMLO2.5T96 PO; +CLOP-31 PO; -CLOP75TA3 PO; -KDUR10 PO; +MONT-35 PO; -MONT10TA21 PO; +POTA-92 PO
== END | disposition home or self-care (01) ==
LOC: RADMN 10:07
PROVIDERS: ATTEND Internal Medicine
DX: I67.2 Cerebral atherosclerosis (principal); R26.89 Other abnormalities of gait and mobility; I67.82 Cerebral ischemia
CPT/HCPCS: 70450

== ENCOUNTER → 2020-06-15 | Outpatient (CLI) | payer MEDICARE, BC ==
[~2020-06-15] MED LIST changes: +LATA2.5D14 OU; -LATA2.5D2 OU
[2020-06-15 15:24] VITALS: BP 162/75
== END | disposition home or self-care (01) ==
LOC: SRCNTR 09:59
PROVIDERS: ATTEND Internal Medicine Critical Care Medicine
DX: C34.90 Malignant neoplasm of unspecified part of unspecified bronchus or lung (principal); J44.1 Chronic obstructive pulmonary disease with (acute) exacerbation; N40.1 Benign prostatic hyperplasia with lower urinary tract symptoms; I25.10 Atherosclerotic heart disease of native coronary artery without angina pectoris; Z90.2 Acquired absence of lung [part of]
CPT/HCPCS: G0463

== ENCOUNTER → 2020-07-06 | Outpatient (CLI) | payer MEDICARE, BC ==
[~2020-07-06] MED LIST changes: -CLOP-31 PO; +CLOP75TA60 PO
== END | disposition home or self-care (01) ==
LOC: RADMN 08:30
PROVIDERS: ATTEND Internal Medicine Critical Care Medicine
DX: Z09 Encounter for follow-up examination after completed treatment for conditions other than malignant neoplasm (principal); I70.0 Atherosclerosis of aorta; I25.10 Atherosclerotic heart disease of native coronary artery without angina pectoris; I51.7 Cardiomegaly; Z95.2 Presence of prosthetic heart valve; J47.9 Bronchiectasis, uncomplicated; J98.11 Atelectasis; Z90.49 Acquired absence of other specified parts of digestive tract
CPT/HCPCS: 71250

== ENCOUNTER 2021-10-06 11:05 | Emergency (ER) | payer MEDICARE, BC ==
[~2021-10-06] VITALS: Ht 185.4 cm; Wt 68.2 kg
[~2021-10-06 11:05] MED LIST changes: +BRIN10DR3 OP; -BRINOS OP
[2021-10-06 13:54] VITALS: BP 140/65
== END 2021-10-06 15:26 | disposition home or self-care (01) ==
LOC: EMS 11:05
DX: S12.110A Anterior displaced Type II dens fracture, initial encounter for closed fracture (principal); I10 Essential (primary) hypertension; J44.9 Chronic obstructive pulmonary disease, unspecified; Z88.6 Allergy status to analgesic agent; Z88.1 Allergy status to other antibiotic agents; Z79.899 Other long term (current) drug therapy; W18.39XA Other fall on same level, initial encounter; Y93.89 Activity, other specified; Y92.89 Other specified places as the place of occurrence of the external cause; Y99.8 Other external cause status
CPT/HCPCS: 70450; 72125; 99284

== ENCOUNTER 2021-10-07 22:45 | Emergency (ER) | payer MEDICARE, BC ==
[~2021-10-07] VITALS: Ht 182.9 cm; Wt 68.2 kg
[2021-10-08 00:17] VITALS: BP 127/77
== END 2021-10-08 00:28 | disposition home or self-care (01) ==
LOC: EMS 22:49
DX: S12.112A Nondisplaced Type II dens fracture, initial encounter for closed fracture (principal); L98.8 Other specified disorders of the skin and subcutaneous tissue; I10 Essential (primary) hypertension; J45.909 Unspecified asthma, uncomplicated; Z88.6 Allergy status to analgesic agent; Z88.1 Allergy status to other antibiotic agents; Z88.8 Allergy status to other drugs, medicaments and biological substances; Z79.899 Other long term (current) drug therapy; X58.XXXA Exposure to other specified factors, initial encounter; Y93.89 Activity, other specified; Y92.89 Other specified places as the place of occurrence of the external cause; Y99.8 Other external cause status
CPT/HCPCS: 99281; Z7502

== ENCOUNTER → 2021-11-22 | Outpatient (CLI) | payer MEDICARE, BC | END | disposition home or self-care (01) | LOC: RADMN 07:55 | PROVIDERS: ATTEND Internal Medicine | DX: S12.200D Unspecified displaced fracture of third cervical vertebra, subsequent encounter for fracture with routine healing (principal); M43.12 Spondylolisthesis, cervical region; M47.812 Spondylosis without myelopathy or radiculopathy, cervical region; Z98.890 Other specified postprocedural states; X58.XXXD Exposure to other specified factors, subsequent encounter | CPT/HCPCS: 72040 ==